=== PATIENT | male | born 2000 | race Caucasian/White ===

== ENCOUNTER 2024-03-23 16:01 | Inpatient (IN) | payer OTHER ==
[~2024-03-23] VITALS: Ht 172.7 cm; Wt 81.2 kg
[2024-03-23] VITALS (17 sets, daily range): BP systolic 104–118; BP diastolic 55–68; TEMP 97.6; O2SAT 97–100
[2024-03-23] MEDS ORDERED: LORazepam 2 MG/ML 1ML VIAL As Ordered ONE (16:05)
[2024-03-23] MEDS: LORazepam 2 MG/ML 1ML VIAL IV STA (16:08)
[2024-03-23] MEDS: ETOMIDATE INJ 20MG/10ML VIAL IV ONE (16:20)
[2024-03-23] MEDS: SUCCINYLCHOLINE INJ 200MG/10ML VIAL IV ONE (16:21)
[2024-03-23] MEDS ORDERED: PROPOFOL 1,000 MG/100 ML VIAL As Ordered ONE (16:24)
[2024-03-23] MEDS: LIDOCAINE 2% 5ML JELLY UROJET TOP ONE (16:25)
[2024-03-23] MEDS: NS 1,000 ML IV ONE ×6 (16:25→18:10)
[2024-03-23] MEDS ORDERED: ISOVUE-370 76% 100ML VIAL As Ordered ONE (16:47)
[2024-03-23 16:53] LABS: BASO # 0.1 10^3/uL (0.0-0.2); BASO % 1.1 % (0.0-1.0); EOS # 0.1 10^3/uL (0.0-0.5); EOS % 1.4 % (0.0-3.0); HEMATOCRIT 43.8 % (42.0-52.0); HEMOGLOBIN 14.6 g/dl (13.5-17.5); LYMPH # 2.4 10^3/uL (1.5-5.0); MEAN CORPUSCULAR HEMOGLOBIN 30.5 pg (27.0-33.0); MEAN CORPUSCULAR HGB CONC 33.3 g/dl (32.0-36.5); MEAN CORPUSCULAR VOLUME 91.6 fl (80.0-96.0); MONO # 0.8 10^3/uL (0.0-0.8); MONO % 9.5 % (2.0-8.0); NEUTROPHILS # 5.3 10^3/uL (1.5-8.5); NEUTROPHILS % 60.5 % (36.0-66.0); PLATELET COUNT, AUTOMATED 251 10^3/uL (150-450); RED BLOOD COUNT 4.78 10^6/uL (4.30-6.10); WHITE BLOOD COUNT 8.7 10^3/uL (4.0-10.0)
[2024-03-23] MEDS ORDERED: MIDAZOLAM INJ 2MG/2ML VIAL As Ordered ONE (17:03)
[2024-03-23] MEDS: MIDAZOLAM INJ 2MG/2ML VIAL IV STA ×2 (17:03→17:16)
[2024-03-23] MEDS: MIDAZOLAM 100MG/100ML-0.9%NACL 100 MG in IV 1 EA IV SCH ×2 (17:06→18:18)
[2024-03-23 17:14] LABS: INR 1.1; PARTIAL THROMBOPLASTIN TIME 22.6 SECONDS (24.8-34.2); PROTHROMBIN TIME 14.5 SECONDS (12.5-14.5)
[2024-03-23] MEDS ORDERED: LIDOCAINE 2% W/EPINEPHRINE 20ML VIAL **PRES FREE As Ordered ONE (17:14)
[2024-03-23 17:15] LABS: BARBITURATES URINE NEGATIVE (NEGATIVE); BENZODIAZEPINES URINE NEGATIVE (NEGATIVE); CANNABINOIDS URINE NEGATIVE (NEGATIVE); ETHYL ALCOHOL (ETHANOL) 0.076 % (0.000-0.010); LIPASE 46 U/L (12-53); METHADONE URINE NEGATIVE (NEGATIVE); OPIATES URINE NEGATIVE (NEGATIVE); PHENCYCLIDINE URINE NEGATIVE (NEGATIVE)
[2024-03-23] MEDS ORDERED: FENTANYL DRIP LOCK BOX KEY 1 EACH XX PRN (17:15)
[2024-03-23 17:17] LABS: ALBUMIN 4.1 G/DL (3.2-5.2); ALKALINE PHOSPHATASE 66 U/L (40-129); ALT/SGPT 34 U/L (7.0-40); AMPHETAMINES LEVEL URINE POSITIVE (NEGATIVE); AMYLASE 96 U/L (30-118); AST/SGOT 45 U/L (<34); BILIRUBIN,DIRECT < 0.1 MG/DL (<0.4); BILIRUBIN,TOTAL 0.2 MG/DL (0.3-1.2); BLOOD UREA NITROGEN 18 MG/DL (9-23); CALCIUM LEVEL 8.6 MG/DL (8.5-10.1); CARBON DIOXIDE LEVEL 12 MMOL/L (20-31); CHLORIDE LEVEL 109 MMOL/L (98-107); COCAINE METABOLITE URINE POSITIVE (NEGATIVE); CREATININE FOR GFR 0.94 MG/DL (0.70-1.30); GLOMERULAR FILTRATION RATE > 60.0 (>60); GLUCOSE, FASTING 112 MG/DL (60-100); SODIUM LEVEL 144 MMOL/L (136-145); TOTAL PROTEIN 7.4 G/DL (5.7-8.2)
[2024-03-23 17:21] LABS: ABG BASE EXCESS -9.5 (-2.0-2.0); ABG HCO3 15.6 MMOL/L (22.0-26.0); ABG PARTIAL PRESSURE O2 191.1 mmHg (75.0-100.0); ABG STANDARD HCO3 16.9 MMOL/L. (22.0-26.0); ABG TOTAL CO2 16.6 MMOL/L (22.0-29.0); ABG pH (ARTERIAL) 7.307 UNITS (7.350-7.450)
[2024-03-23] MEDS ORDERED: HOME MED LIST COMPLETE! XX SCH (17:30)
[2024-03-23 17:31] LABS: SALICYLATE LEVEL < 3.0 MG/DL (<30)
[2024-03-23] MEDS: MIDAZOLAM 5MG/ML 1ML VIAL IV ONE ×2 (17:37→17:58)
[2024-03-23] MEDS: LIDOCAINE 2% W/EPINEPHRINE 20ML VIAL **PRES FREE INJ ONE (17:45)
[2024-03-23] MEDS: fentaNYL CITRATE/NaCl 1,000 MCG in IV 1 EA IV SCH (17:59)
[2024-03-23 18:01] LABS: CPK CREATINE PHOSPHOKINASE 146 U/L (46-171)
[2024-03-23] MEDS ORDERED: MIDAZOLAM 100MG/100ML-0.9%NACL 100 MG in IV 1 EA IV SCH (18:05)
[2024-03-23] MEDS: propofoL 1,000 MG in IV 1 EA IV SCH (19:40)
[2024-03-23 21:12] LABS: VENOUS BASE EXCESS -6.4 (-2.0-2.0); VENOUS HCO3 20.3 MMOL/L (23.0-27.0); VENOUS O2 SATURATION 96.8 % (60.0-80.0); VENOUS PARTIAL PRESSURE CO2 44.4 mmHg (38.0-50.0); VENOUS PARTIAL PRESSURE O2 99.7 mmHg (30.0-50.0); VENOUS PH 7.277 UNITS (7.330-7.430); VENOUS STANDARD HCO3 19.3 MMOL/L; VENOUS TOTAL CO2 21.6 MMOL/L (24.0-28.0)
[2024-03-23] MEDS: THIAMINE 200MG 2ML VIAL IV ONE (21:19)
[2024-03-23 21:24] LABS: HEMATOCRIT 33.7 % (42.0-52.0); MEAN CORPUSCULAR HEMOGLOBIN 31.1 pg (27.0-33.0); MEAN CORPUSCULAR HGB CONC 34.4 g/dl (32.0-36.5); MEAN CORPUSCULAR VOLUME 90.3 fl (80.0-96.0); RED BLOOD COUNT 3.73 10^6/uL (4.30-6.10); WHITE BLOOD COUNT 10.1 10^3/uL (4.0-10.0)
[2024-03-23 21:58] LABS: HEMOGLOBIN 11.6 g/dl (13.5-17.5); PLATELET COUNT, AUTOMATED 143 10^3/uL (150-450)
[2024-03-24] VITALS (41 sets, daily range): BP systolic 106–147; BP diastolic 55–90; TEMP 97.7–100.1; O2SAT 94–100
[2024-03-24] MEDS: propofoL 1,000 MG in IV 1 EA IV SCH (02:23)
[2024-03-24 05:00] LABS: BASO % 0.5 % (0.0-1.0); EOS # 0.1 10^3/uL (0.0-0.5); HEMATOCRIT 32.7 % (42.0-52.0); HEMOGLOBIN 11.2 g/dl (13.5-17.5); LYMPH # 1.8 10^3/uL (1.5-5.0); LYMPH % 26.9 % (24.0-44.0); MEAN CORPUSCULAR HGB CONC 34.3 g/dl (32.0-36.5); MEAN CORPUSCULAR VOLUME 90.6 fl (80.0-96.0); MONO # 0.7 10^3/uL (0.0-0.8); MONO % 11.1 % (2.0-8.0); NEUTROPHILS # 3.9 10^3/uL (1.5-8.5); NEUTROPHILS % 59.2 % (36.0-66.0); PLATELET COUNT, AUTOMATED 139 10^3/uL (150-450); RED BLOOD COUNT 3.61 10^6/uL (4.30-6.10); WHITE BLOOD COUNT 6.6 10^3/uL (4.0-10.0)
[2024-03-24 05:29] LABS: ALBUMIN 2.9 G/DL (3.2-5.2); ALKALINE PHOSPHATASE 46 U/L (40-129); ALT/SGPT 23 U/L (7.0-40); AST/SGOT 29 U/L (<34); BILIRUBIN,TOTAL 0.3 MG/DL (0.3-1.2); BLOOD UREA NITROGEN 8 MG/DL (9-23); CALCIUM LEVEL 7.9 MG/DL (8.5-10.1); CARBON DIOXIDE LEVEL 24 MMOL/L (20-31); CHLORIDE LEVEL 116 MMOL/L (98-107); CREATININE FOR GFR 0.77 MG/DL (0.70-1.30); GLOMERULAR FILTRATION RATE > 60.0 (>60); GLUCOSE, FASTING 73 MG/DL (60-100); MAGNESIUM LEVEL 1.8 MG/DL (1.8-2.4); PHOSPHORUS LEVEL 3.8 MG/DL (2.5-4.9); POTASSIUM SERUM 3.8 MMOL/L (3.5-5.1); SODIUM LEVEL 145 MMOL/L (136-145); TOTAL PROTEIN 5.4 G/DL (5.7-8.2)
[2024-03-24] MEDS: ENOXAPARIN 40MG/0.4ML SYRINGE (J1650 PER 10MG) SC SCH (08:36)
[2024-03-24] MEDS: PANTOPRAZOLE 40MG VIAL IV SCH (08:36)
[2024-03-24 08:39] LABS: CPK CREATINE PHOSPHOKINASE 145 U/L (46-171)
[2024-03-24] MEDS: CALCIUM GLUCONATE 1,000 MG in DEXTROSE 5% (D5W) MINI-BAG PLU 100 ML IV ONE (09:33)
[2024-03-24] MEDS ORDERED: HOME MED LIST COMPLETE! XX SCH (11:00)
[2024-03-24] MEDS ORDERED: ONDANSETRON 4MG 2ML VIAL As Ordered ONE (14:27)
[2024-03-24] MEDS: ONDANSETRON 4MG 2ML VIAL IV ONE (14:30)
[2024-03-24] MEDS ORDERED: LORazepam 2 MG TAB PO PRN (14:30)
[2024-03-24] MEDS: THIAMINE 100 MG TAB PO SCH (16:07)
[2024-03-24] MEDS: FOLIC ACID 1MG TAB PO SCH (16:07)
[2024-03-24] MEDS: MULTIVITAMINS/MINERALS THERAP 1 TAB PO SCH (16:07)
[2024-03-24] MEDS ORDERED: diphenhydrAMINE CREAM 30GM TOP PRN (18:25)
[2024-03-24] MEDS ORDERED: NICOTINE 14 MG/24 HR TRANSDERMAL TD PRN (18:35)
[2024-03-24] MEDS ORDERED: NICOTINE POLACRILEX 2 MG GUM PO PRN (18:35)
[2024-03-24] MEDS: AUGMENTIN 875 MG TAB PO SCH (20:32)
[2024-03-25] VITALS: BP 111/63; TEMP 99; O2SAT 96
[2024-03-25 04:00] VITALS: BP 120/72; TEMP 98; O2SAT 98
[2024-03-25 05:43] LABS: ALBUMIN 3.2 G/DL (3.2-5.2); ALKALINE PHOSPHATASE 58 U/L (40-129); ALT/SGPT 28 U/L (7.0-40); AST/SGOT 34 U/L (<34); BILIRUBIN,TOTAL 0.3 MG/DL (0.3-1.2); BLOOD UREA NITROGEN < 5 MG/DL (9-23); CALCIUM LEVEL 8.8 MG/DL (8.5-10.1); CARBON DIOXIDE LEVEL 25 MMOL/L (20-31); CHLORIDE LEVEL 110 MMOL/L (98-107); GLOMERULAR FILTRATION RATE > 60.0 (>60); GLUCOSE, FASTING 104 MG/DL (60-100); POTASSIUM SERUM 3.8 MMOL/L (3.5-5.1); SODIUM LEVEL 142 MMOL/L (136-145); TOTAL PROTEIN 6.2 G/DL (5.7-8.2)
[2024-03-25 08:00] VITALS: BP 122/73; TEMP 98.4; O2SAT 98
[2024-03-25 08:01] LABS: HEMATOCRIT 40.1 % (42.0-52.0); MEAN CORPUSCULAR HEMOGLOBIN 30.9 pg (27.0-33.0); MEAN CORPUSCULAR HGB CONC 34.2 g/dl (32.0-36.5); MEAN CORPUSCULAR VOLUME 90.3 fl (80.0-96.0); PLATELET COUNT, AUTOMATED 185 10^3/uL (150-450); RED BLOOD COUNT 4.44 10^6/uL (4.30-6.10); WHITE BLOOD COUNT 12.9 10^3/uL (4.0-10.0)
[2024-03-25 08:06] LABS: HEMOGLOBIN 13.7 g/dl (13.5-17.5)
[2024-03-25] MEDS: ACETAMINOPHEN 325 MG TAB PO PRN (09:53)
[2024-03-25] MEDS ORDERED: THIA100TA PO (14:11)
[2024-03-25] MEDS ORDERED: FOLI1TAB11 PO (14:11)
[2024-03-25] MEDS ORDERED: AMOX875T2 PO (14:11)
[2024-03-26] MEDS ORDERED: MED REC COMMENT (07:49)
== END 2024-03-25 16:08 | DRG 896 ==
LOC: M ED 16:01 → EDBD 16:01 → M ED INP 17:57 → M ICU 20:09
PROVIDERS: ADMIT Internal Medicine Pulmonary Disease; ATTEND Student in an Organized Health Care Education/Training Program
PROC: 5A1945Z Respiratory Ventilation, 24-96 Consecutive Hours (ICD-10-PCS; principal; 2024-03-23)
DX: F15.129 Other stimulant abuse with intoxication, unspecified (principal); G93.41 Metabolic encephalopathy; J69.0 Pneumonitis due to inhalation of food and vomit; J96.00 Acute respiratory failure, unspecified whether with hypoxia or hypercapnia; E87.20 Acidosis, unspecified; S05.42XA Penetrating wound of orbit with or without foreign body, left eye, initial encounter; F14.129 Cocaine abuse with intoxication, unspecified; G40.409 Other generalized epilepsy and epileptic syndromes, not intractable, without status epilepticus; L74.0 Miliaria rubra; F17.200 Nicotine dependence, unspecified, uncomplicated; W18.30XA Fall on same level, unspecified, initial encounter; Y92.009 Unspecified place in unspecified non-institutional (private) residence as the place of occurrence of the external cause

== ENCOUNTER 2024-03-25 14:56 | Inpatient (IN) | payer OTHER ==
[~2024-03-25] VITALS: Ht 177.8 cm; Wt 78.5 kg
[~2024-03-25 14:56] MED LIST: AMOX875T2 PO; FOLI1TAB11 PO; THIA100TA PO
[2024-03-25] MEDS ORDERED: diphenhydrAMINE CREAM 30GM TOP PRN (15:55)
[2024-03-25] MEDS ORDERED: NICOTINE 14 MG/24 HR TRANSDERMAL TD PRN (15:55)
[2024-03-25] MEDS ORDERED: MAALOX 30 ML SUSP *UDC PO PRN (15:55)
[2024-03-25] MEDS ORDERED: ACETAMINOPHEN 325 MG TAB PO PRN (15:55)
[2024-03-25] MEDS ORDERED: LORazepam 2 MG TAB PO PRN (15:55)
[2024-03-25] MEDS ORDERED: IBUPROFEN 400MG TAB PO PRN (15:55)
[2024-03-25] MEDS ORDERED: MOM 30ML SUSPENSION UDC PO PRN (15:55)
[2024-03-25 16:50] VITALS: BP 140/85; TEMP 97
[2024-03-25 17:27] VITALS: BP 140/85
[2024-03-25] MEDS: THIAMINE 100 MG TAB PO SCH (20:27)
[2024-03-25] MEDS: AUGMENTIN 875 MG TAB PO SCH (20:27)
[2024-03-26 02:02] VITALS: BP 131/69
[2024-03-26 06:23] VITALS: BP 141/92; TEMP 97; O2SAT 100
[2024-03-26 06:25] VITALS: BP 112/71; TEMP 96.8; O2SAT 97
[2024-03-26] MEDS ORDERED: MED REC COMMENT (07:49)
[2024-03-26] MEDS ORDERED: HOME MED LIST COMPLETE! XX SCH (07:50)
[2024-03-26] MEDS: FOLIC ACID 1MG TAB PO SCH (09:02)
[2024-03-26] MEDS: MULTIVITAMINS/MINERALS THERAP 1 TAB PO SCH (09:02)
[2024-03-26] MEDS: PANTOPRAZOLE 40MG TAB (PROTONIX) PO SCH (09:02)
[2024-03-26 10:00] VITALS: BP 112/71
[2024-03-26 15:09] VITALS: BP 141/72; TEMP 97.5; O2SAT 99
[2024-03-26] MEDS: HYDROCORTISONE 1% CREAM 30GM TOP SCH (20:35)
[2024-03-26] MEDS: diphenhydrAMINE 25MG CAP PO PRN (20:39)
[2024-03-26] MEDS: traZODone 50 MG TAB PO PRN (20:39)
[2024-03-27 06:14] VITALS: BP 126/67; TEMP 98; O2SAT 100
[2024-03-27 14:57] VITALS: BP 127/64; TEMP 97.3; O2SAT 100
[2024-03-28 06:50] VITALS: BP 132/74; TEMP 97.4; O2SAT 98
[2024-03-28 14:50] VITALS: BP 141/69; TEMP 98.8; O2SAT 98
[2024-03-29 06:35] VITALS: BP 145/79; TEMP 97.2; O2SAT 98
[2024-03-29 15:06] VITALS: BP 138/71; TEMP 98.2; O2SAT 98
[2024-03-30 06:37] VITALS: BP 123/64; TEMP 97.8; O2SAT 98
== END 2024-03-30 10:30 | disposition home or self-care (01) | DRG 881 ==
LOC: M PSY 16:57
PROVIDERS: ADMIT Psychiatry & Neurology Psychiatry; ATTEND Psychiatry & Neurology Psychiatry
DX: F32.A Depression, unspecified (principal); F10.10 Alcohol abuse, uncomplicated; F14.90 Cocaine use, unspecified, uncomplicated; F17.290 Nicotine dependence, other tobacco product, uncomplicated; L74.0 Miliaria rubra